=== PATIENT | male | born 1950 | race Caucasian/White ===

== ENCOUNTER 2018-11-21 13:57 | Inpatient (IN) | payer OTHER ==
[~2018-11-21] VITALS: Ht 170.2 cm; Wt 72.6 kg
== END 2018-11-26 15:01 | disposition expired | DRG 444 ==
LOC: ER 13:57 → MEDJ 11-22 09:19 → MEDI 11-22 09:19 → SEC-K 11-22 13:19 → MEDI 11-22 17:02 → MEDJ 11-25 14:11
PROVIDERS: ADMIT Internal Medicine
PROC: BW28ZZZ Computerized Tomography (CT Scan) of Head (ICD-10-PCS; principal; 2018-11-22)
PROC: BW21ZZZ Computerized Tomography (CT Scan) of Abdomen and Pelvis (ICD-10-PCS; 2018-11-22)
PROC: BW21YZZ Computerized Tomography (CT Scan) of Abdomen and Pelvis using Other Contrast (ICD-10-PCS; 2018-11-22)
PROC: 0FB23ZX Excision of Left Lobe Liver, Percutaneous Approach, Diagnostic (ICD-10-PCS; 2018-11-23)
PROC: 4A033R1 Measurement of Arterial Saturation, Peripheral, Percutaneous Approach (ICD-10-PCS; 2018-11-24)
PROC: 3E0F7GC Introduction of Other Therapeutic Substance into Respiratory Tract, Via Natural or Artificial Opening (ICD-10-PCS; 2018-11-24)
PROC: 0BH17EZ Insertion of Endotracheal Airway into Trachea, Via Natural or Artificial Opening (ICD-10-PCS; 2018-11-26)
PROC: 5A1935Z Respiratory Ventilation, Less than 24 Consecutive Hours (ICD-10-PCS; 2018-11-26)
PROC: 4A12X4Z Monitoring of Cardiac Electrical Activity, External Approach (ICD-10-PCS; 2018-11-26)
DX: K80.51 Calculus of bile duct without cholangitis or cholecystitis with obstruction (principal); A41.9 Sepsis, unspecified organism; J96.01 Acute respiratory failure with hypoxia; R65.21 Severe sepsis with septic shock; B37.1 Pulmonary candidiasis; J15.1 Pneumonia due to Pseudomonas; D68.9 Coagulation defect, unspecified; N39.0 Urinary tract infection, site not specified; N17.8 Other acute kidney failure; E87.4 Mixed disorder of acid-base balance; J91.8 Pleural effusion in other conditions classified elsewhere; E86.0 Dehydration; E87.8 Other disorders of electrolyte and fluid balance, not elsewhere classified; D72.828 Other elevated white blood cell count; D69.49 Other primary thrombocytopenia; D69.1 Qualitative platelet defects; K57.30 Diverticulosis of large intestine without perforation or abscess without bleeding; N40.0 Benign prostatic hyperplasia without lower urinary tract symptoms